=== PATIENT | male | born 1940 | race Caucasian/White ===

== ENCOUNTER 2024-07-10 17:08 | Outpatient (CLI) | payer OTHER, MEDICARE, SELFPAY | END 2024-07-10 17:09 | disposition home or self-care (01) | PROVIDERS: PCP Family Medicine; Visit Provider Family Medicine | DX: I95.9 Hypotension, unspecified (principal); G20.A1 Parkinson's disease without dyskinesia, without mention of fluctuations | CPT/HCPCS: A0425; A0428 ==